=== PATIENT | female | born 1955 | race Caucasian/White ===

== ENCOUNTER 2022-04-25 10:25 | Emergency (ER) | payer BC, MEDICAID ==
[~2022-04-25] VITALS: Ht 152.4 cm; Wt 62.7 kg
--- NOTE | 2022-04-25 11:15 | NUR ---
NOT ON ANY ANTISEIZURE MEDS PT IS NEW TO [facility] AND HAS NOT ESTABLISH NEW PCP.
--- NOTE | 2022-04-25 11:33 | NUR ---
Dr. Kirkpatrick at bedside.
--- NOTE | 2022-04-25 11:46 | NUR ---
Patient received in the room.
--- NOTE | 2022-04-25 11:59 | NUR ---
Cleared from trauma.
[2022-04-25] MEDS ORDERED: morphine 4 MG/ML inj SYRINge IV ONE (14:45)
[2022-04-25] MEDS ORDERED: ondansetron/PF 4mg/2ml inj IV ONE (14:45)
[2022-04-25] MEDS ORDERED: levetiracetam inj 750 MG in normal saline 100ml IV soln 92.5 ML IV ONE (14:45)
[2022-04-25 15:18] LABS: ALANINE AMINOTRANSFERASE 24 U/L (12-78); ALBUMIN 4.2 G/DL (3.4-5.0); ALBUMIN/GLOBULIN RATIO 1.2 (1.1-1.5); ALKALINE PHOSPHATASE 94 IU/L (46-116); ANION GAP 12 (8-16); ASPARTATE AMINO TRANSFERASE 18 U/L (10-37); BILIRUBIN,TOTAL 0.4 MG/DL (0.1-1.0); BLOOD UREA NITROGEN 13 MG/DL (7-18); CALCIUM 9.2 MG/DL (8.5-10.1); CHLORIDE 103 MMOL/L (99-107); CREATININE 0.62 MG/DL (0.40-0.90); GLUCOSE 113 MG/DL (70-104); POTASSIUM 3.9 MMOL/L (3.5-5.1); SODIUM 137 MMOL/L (135-145); TOTAL CARBON DIOXIDE 22.4 MMOL/L (24-32); TOTAL PROTEIN 7.6 G/DL (6.4-8.2); eGFR > 90 ML/MIN
[2022-04-25 15:43] LABS: BASOPHILS % (AUTO) 0.5 % (0-1); EOSINOPHILS % (AUTO) 0.2 % (0-6); HEMOGLOBIN 15.9 g/dl (12.0-16.0); LYMPHOCYTES # (AUTO) 1.2 X10'3 (1.1-4.8); LYMPHOCYTES % (AUTO) 13.5 % (21-51); MEAN CORPUSCULAR HEMOGLOBIN 30.5 PG (27.0-31.0); MEAN CORPUSCULAR HGB CONC 34.6 g/dL (33.0-36.5); MEAN CORPUSCULAR VOLUME 88.2 FL (78-98); MONOCYTES # (AUTO) 0.7 X10'3 (0-0.9); MONOCYTES % (AUTO) 7.7 % (2-12); NEUTROPHILS # (AUTO) 6.9 X10'3 (1.8-7.7); NEUTROPHILS % (AUTO) 78.1 % (42-75); PLATELET COUNT 196 X10'3 (140-440); RED BLOOD COUNT 5.21 X10'6 (4.20-5.60); RED CELL DISTRIBUTION WIDTH 13.1 % (11.5-14.5); WHITE BLOOD COUNT 8.8 X10'3 (4.5-11.0)
[2022-04-25] MEDS ORDERED: KEP500T PO (15:51)
[2022-04-25] MEDS ORDERED: FIORINAL PO (15:59)
[2022-04-25 16:29] VITALS: BP 127/80
== END 2022-04-25 16:20 | disposition home or self-care (01) ==
LOC: ER 10:25
DX: S00.83XA Contusion of other part of head, initial encounter (principal); R56.9 Unspecified convulsions; M54.2 Cervicalgia; F17.210 Nicotine dependence, cigarettes, uncomplicated; Z98.890 Other specified postprocedural states; Z88.1 Allergy status to other antibiotic agents; Z91.041 Radiographic dye allergy status; Z79.899 Other long term (current) drug therapy; W19.XXXA Unspecified fall, initial encounter; Y93.89 Activity, other specified; Y92.89 Other specified places as the place of occurrence of the external cause; Y99.8 Other external cause status
CPT/HCPCS: 36415; 70450; 70486; 80053; 82948; 85025; 93005; 96365; 96375; 99285; J1953; J2270; J2405; J3490